=== PATIENT | male | born 1965 | race Caucasian/White ===

== ENCOUNTER 2017-10-03 18:59 | Inpatient (IN) | payer OTHER ==
[~2017-10-03] VITALS: Ht 182.9 cm; Wt 83.9 kg
--- NOTE | 2017-10-03 19:30 | NUR ---
PRE-ADMISSION NOTE Patient is a 51-year-old male, seen at intake, alert and oriented x4. Patient is flushed, diaphoretic, and tremulous, verbalizing that he is anxious to be in a "new and unfamiliar environment." Patient's initial vital signs are as follows: 157/90, HR 78, O2 sat 98% on room air, RR 20/min, temp 98.8, no complaints of pain. Patient states he has NKDA/NKFA; patient is ambulatory, gait is steady. Patient states his last drink was "on the plane" a couple hours prior to arriving at intake. Patient was seen by MD and patient's blood was drawn and UA provided. SN instructed patient on unit protocols and procedures, such as vital signs Q4H, body/skin check and contraband check, etc. Patient verbalized understanding to instructions. Will continue with admission upon patient's arrival to the unit.
[2017-10-03] MEDS ORDERED: THIAMINE HCL 200 MG/2 ML VIAL IM ONE (19:45)
[2017-10-03] MEDS ORDERED: ACETAMINOPHEN 325 MG TABLET PO PRN (19:45)
[2017-10-03] MEDS ORDERED: LORAZEPAM 1 MG TABLET PO PRN ×2 (19:45)
[2017-10-03] MEDS ORDERED: CLONIDINE HCL 0.1 MG TABLET PO PRN (19:45)
[2017-10-03] MEDS ORDERED: LOPERAMIDE HCL 2 MG CAPSULE PO PRN ×2 (19:45)
[2017-10-03] MEDS ORDERED: MIRALAX 17 GM POWD.PACK PO PRN (19:45)
[2017-10-03] MEDS ORDERED: ONDANSETRON 4 MG/2 ML VIAL IM PRN (19:45)
[2017-10-03] MEDS ORDERED: MAG HYDROX/AL HYDROX/SIMETH 30 ML LIQUID UDC PO PRN (19:45)
[2017-10-03] MEDS ORDERED: DICYCLOMINE HCL 20 MG TABLET PO PRN (19:45)
[2017-10-03] MEDS ORDERED: LORAZEPAM 2 MG/1 ML VIAL IM PRN (19:45)
[2017-10-03] MEDS ORDERED: ONDANSETRON ODT 4 MG TAB.RAPDIS SL PRN (19:45)
[2017-10-03] MEDS ORDERED: MAGNESIUM HYDROXIDE 30 ML LIQUID UDC PO PRN (19:45)
[2017-10-03 20:05] LABS: BASOPHILS # (AUTO) 0.1 K/uL (0.0-8.0); BASOPHILS % (AUTO) 0.8 % (0.0-2.0); EOSINOPHILS # (AUTO) 0.1 K/uL (0.0-0.7); EOSINOPHILS % (AUTO) 1.5 % (0.0-7.0); HEMATOCRIT 45.5 % (36.7-47.1); HEMOGLOBIN 15.5 g/dL (12.5-16.3); LYMPHOCYTES % (AUTO) 14.2 % (20.5-51.5); MEAN CORPUSCULAR HEMOGLOBIN 34.6 uug (23.8-33.4); MEAN CORPUSCULAR HGB CONC 34 g/dL (32.5-36.3); MEAN CORPUSCULAR VOLUME 101.5 fL (73.0-96.2); MONOCYTES # (AUTO) 0.7 K/uL (2.0-10.0); MONOCYTES % (AUTO) 10.5 % (0.0-11.0); NEUTROPHILS # (AUTO) 5.1 K/uL (1.8-8.9); PLATELET COUNT (AUTO) 252 K/uL (152-348); RED BLOOD CELL COUNT(AUTO) 4.48 MIL/uL (4.06-5.63)
[2017-10-03 20:09] LABS: *AMPHETAMINE, URINE NEGATIVE (NEGATIVE); *BARBITURATE, URINE NEGATIVE (NEGATIVE); *CANNABINOID, URINE NEGATIVE (NEGATIVE); *COCCAINE, URINE NEGATIVE (NEGATIVE); *OPIATE, URINE NEGATIVE (NEGATIVE); *PHENCYCLIDINE SCREEN,URINE NEGATIVE (NEGATIVE)
[2017-10-03 20:18] LABS: BILIRUBIN,TOTAL 0.8 mg/dL (0.2-1.0); CREATININE 0.9 mg/dL (0.6-1.3); MAGNESIUM 1.6 mg/dL (1.8-2.4); POTASSIUM 3.4 mmol/L (3.5-5.1); TOTAL PROTEIN, SERUM 8.4 g/dL (6.4-8.2)
[2017-10-03] MEDS ORDERED: LORAZEPAM 1 MG TABLET PO SCH (21:00)
[2017-10-03] MEDS: LEVETIRACETAM 500 MG TABLET PO SCH (21:32)
[2017-10-03] MEDS ORDERED: MAGNESIUM OXIDE 400 MG TABLET PO ONE (22:00)
[2017-10-03] MEDS ORDERED: POTASSIUM CHLORIDE 20 MEQ TAB.PRT.SR PO ONE (22:00)
--- NOTE | 2017-10-03 22:00 | NUR ---
ADMISSION NOTE Patient is a 51-year-old male, admitted on 10/03/17 for ETOH withdrawal, on the unit at 2001. Patient is FULL code status, on a regular diet, with NKDA/NKFA. Patient is alert and oriented x4, 6' and 185 lbs. Patient is ambulatory with a steady gait. Patient is the primary source of information. Patient states that he recently had a seizure, "about 6 weeks ago" related to withdrawal, however it was his first seizure ever experienced. Patient reports that since then he has been taking "anti-seizure" medication (Keppra); is aware. Skin and body check was completed upon patient's arrival to the unit, no contraband found. Upon assessment, patient's skin is intact, flushed and diaphoretic. Patient's lung sounds are clear bilaterally, bowel sounds active x4 quadrants upon auscultation. Patient's vitals as follows: BP 157/90, HR 78, O2 sat 98% on room air, RR 20/min, temp 98.8, denies pain at this time. Patient states that his most common withdrawal symptoms are "uncontrollable tremors" to the point where he "can't even hold water to drink." Patient states that he experiences headaches when withdrawing, although he denies the presence of headache at this time. Patient states he does not smoke cigarettes, nor does he use any nicotine products. Substance Abuse History: 1. ETOH (vodka) 500-750ml daily consistently for the last 2 months. Patient reports that he has been drinking since he was [id number]. Last intake was about 4 oz. of vodka on the plane 2 hours prior to arrival. Patient reports that the last rehab he attended was in [place] but does not recall the name. He states that his longest period of sobriety was 60 days during 2016- 2016. Patient does have a PCP and thinks he is an organ donor. Patient states that family history of substance abuse is limited to his father, who from cirrhosis of the liver. Patient currently lives in [place] with his and sahilon. Initial CIWA was 15. Patient was oriented to the unit and shown to his room. Seizure and fall precautions in place, safety measures in place, side rails up x2, bed locked in low position, call light within reach. Will continue to monitor.
[2017-10-03] MEDS: diphenhydrAMINE 50 MG CAPSULE PO PRN (22:10)
[2017-10-03] MEDS: GABAPENTIN 300 MG CAPSULE PO SCH (22:10)
--- NOTE | 2017-10-03 22:10 | NUR ---
PRN BENADRYL Patient states he has difficulty sleeping requests aid. PRN Benadryl given PO. Safety measures in place, call light within reach. Will reassess for effectiveness.
[2017-10-03] MEDS ORDERED: FOLI1TAB16 PO (22:21)
[2017-10-03] MEDS ORDERED: THIA100T13 GT (22:21)
[2017-10-03] MEDS ORDERED: CYCL5TAB PO (22:21)
[2017-10-03] MEDS ORDERED: LEVE500T20 PO (22:21)
[2017-10-03] MEDS ORDERED: GABA-534 PO (22:21)
[2017-10-03] MEDS ORDERED: NABU500T3 PO (22:21)
--- NOTE | 2017-10-03 23:10 | NUR ---
PRN BENADRYL REASSESSMENT Patient is resting in bed with eyes closed, sleeping. PRN Benadryl effective. Respirations even and unlabored, 16/min. Safety measures in place, call light within reach. Will continue to monitor.
[2017-10-03 23:31] VITALS: BP 157/90
[2017-10-04] VITALS: BP 125/77
--- NOTE | 2017-10-04 | NUR ---
CIWA DEFERRED CIWA deferred due to patient sleeping; to be assessed while patient is awake, per protocol. Respirations are even and unlabored, safety measures in place, side rails up x2, call light within reach. Will continue to monitor.
[2017-10-04 04:00] VITALS: BP 116/79
--- NOTE | 2017-10-04 04:00 | NUR ---
CIWA DEFERRED Patient remains in bed, sleeping with eyes closed, HOB elevated about 45 degrees. Patient's respirations are even and unlabored, 16/min. CIWA deferred due to patient sleeping. Safety measures in place, call light within reach. Will continue to monitor.
[2017-10-04] MEDS ORDERED: MULT1TAB73 PO (06:19)
[2017-10-04] MEDS: PANTOPRAZOLE SODIUM 40 MG TABLET.DR PO SCH (06:22)
--- NOTE | 2017-10-04 07:07 | NUR ---
END OF SHIFT Patient is a 51-year-old male, admitted on 10/03/17 for ETOH withdrawal. Patient is scheduled to start a 5-day Ativan taper today. Last CIWA was 12. Patient received PRN Benadryl PO; PRN was effective. Patient's potassium and magnesium were replaced, along with other scheduled 2100 meds. Patient slept for 7 hours, total intake of 796 ml, void x1, stool x0. Seizure and fall precautions in place with past history of seizure x1 approximately 6 weeks ago (2017). Safety measures in place, side rails up x2, bed locked in low position, call light within reach. Will endorse to day shift.
--- NOTE | 2017-10-04 07:30 | NUR ---
START OF SHIFT NOTE Patient is 51 year old male admitted for ETOH withdrawal. Patient order to start 5 days Ativan taper. Per endorsement patient was given PRN Benadryl,effective per night nurse,slept for 7 hours and last CIWA score was-12. Patient received alert awake,complaining of body aches,anxious,agitated, hot cold sweats, nausea,vomiting tremors. Educated patient with plan of the day and importance of compliant to medication and treatment with good verbal understanding. Safety measures in place. Will cont with plan of care.
[2017-10-04 08:00] VITALS: BP 114/80
[2017-10-04] MEDS: GABAPENTIN 300 MG CAPSULE PO SCH ×3 (08:20→20:37)
[2017-10-04] MEDS: LEVETIRACETAM 500 MG TABLET PO SCH ×2 (08:21→20:38)
[2017-10-04] MEDS: THIAMINE HCL 100 MG TABLET PO SCH (08:21)
[2017-10-04] MEDS: MULTIVITAMINS,THERAPEUTIC TABLET PO SCH (08:21)
[2017-10-04] MEDS: LORAZEPAM 1 MG TABLET PO SCH ×4 (08:21→20:38)
[2017-10-04] MEDS: FOLIC ACID 1 MG TABLET PO SCH (08:21)
[2017-10-04] MEDS ORDERED: TUBERCULIN,PURIF.PROT.DERIV. 5 TU/0.1 ML TEST ID ONE (09:00)
[2017-10-04] MEDS: SERTRALINE HCL 50 MG TABLET PO SCH (10:58)
[2017-10-04 12:00] VITALS: BP 121/85
--- NOTE | 2017-10-04 14:26 | NUR ---
PRN IMODIUM Patient reported diarrhea x1 PRN Imodium 4mg Po given as ordered. Will cont to monitor and reassess the pt.
--- NOTE | 2017-10-04 15:26 | NUR ---
IMODIUM REASSESSMENT Per pt Imodium was effective no episode of diarrhea at this time.
[2017-10-04 16:00] VITALS: BP 104/68
--- NOTE | 2017-10-04 16:16 | NUR ---
PRN BENTYL Patient was c/o of stomach cramps 01/03. PRN Bentyl 20mg PO given as ordered. Will cont to monitor and reassess the pt.
--- NOTE | 2017-10-04 17:16 | NUR ---
VIELKA REASSESSMENT Per patient medication was effective stomach cramps subside to 08/05.
--- NOTE | 2017-10-04 19:25 | NUR ---
END OF SHIFT NOTE Patient is alert awake oriented. Patient presented with anxiety, agitation, worried, labile facial expression, stomach cramps, diarrhea. Patient continues with Ativan taper tolerating well. During shift patient received PRN Bentyl, Imodium noted to be effective. Patient was seen by Psychiatric with new order to start Zoloft 50mg PO, medication given as ordered. Vital signs WNL. Skin intact warm and dry to touch. Encourage pt to develop coping skills and utilization of non pharmacological intervention. Patient was encouraged to participates in groups therapy session. Encourage diversional activities to alleviate anxiety. Patient denies any SI/HI. Safety measures in place. Patient endorsed to night nurse in stable condition.
--- NOTE | 2017-10-04 19:35 | NUR ---
START OF SHIFT Patient is a 51-year-old male, admitted on 10/03/17 for ETOH withdrawal. Patient started a 5-day Ativan taper today, tolerating well. Last CIWA was 14 per day shift nurse. Patient received PRN Bentyl and PRN Imodium for 1 episode of diarrhea and stomach cramps; PRN was effective per day shift. Upon assessment, patient was lying in bed, watching television, alert and oriented x4. Patient reports anxiety and difficulty sleeping, and mild headache. Patient reports he had one more episode of diarrhea within the last hour and is requesting another PRN Imodium. Patient is on seizure and fall precautions with past history of seizure x1, approximately 6 weeks ago (2017). Safety measures in place, side rails up x2, bed locked in low position, call light within reach. Will continue to monitor.
[2017-10-04 20:00] VITALS: BP 122/86
[2017-10-04] MEDS: diphenhydrAMINE 50 MG CAPSULE PO PRN (20:37)
[2017-10-04] MEDS: IBUPROFEN 600 MG TABLET PO PRN (20:38)
--- NOTE | 2017-10-04 20:38 | NUR ---
PRN IMODIUM, MOTRIN, & BENADRYL Patient reports that he has had another loose BM since last taking PRN Imodium. PRN Imodium 2mg given PO. Patient reports headache of 3/10 on pain scale. PRN Motrin given PO. Pt reports difficulty sleeping. PRN Benadryl given PO. Safety measures in place, call light within reach. Will reassess for effectiveness.
--- NOTE | 2017-10-04 21:38 | NUR ---
PRN IMODIUM, MOTRIN, & BENADRYL REASSESSMENT Patient reports no episodes of LBM at this time, diarrhea has ceased. PRN Imodium effective. Patient reports headache is resolved, 0/10 on pain scale. PRN Motrin effective. Patient is lying in bed, sleepy and ready for bed. PRN Benadryl effective. Safety measures in place, side rails up x2, bed locked in low position, call light within reach. Will continue to monitor.
[2017-10-05] VITALS: BP 118/82
--- NOTE | 2017-10-05 | NUR ---
CIWA DEFERRED CIWA deferred due to patient sleeping at this time; to be assessed and scored while patient is awake. Respirations are even and unlabored, 16/min. Safety measures in place, side rails up x2, bed locked in low position, call light within reach. Will continue to monitor.
[2017-10-05 04:00] VITALS: BP 116/79
[2017-10-05] MEDS: PANTOPRAZOLE SODIUM 40 MG TABLET.DR PO SCH (06:53)
--- NOTE | 2017-10-05 07:04 | NUR ---
END OF SHIFT Patient is a 51-year-old male, admitted on 10/03/17 for ETOH withdrawal. Patient started a 5-day Ativan taper yesterday, tolerating well. Last CIWA was 15. Patient received PRN Imodium for 2nd episode of diarrhea, PRN Motrin for headache and PRN Benadryl for difficulty sleeping; all PRNs were effective. Patient slept for 9 hours, total intake 850 mL, void x1, stool x1. Patient is on seizure and fall precautions with past history of seizure x1, approximately 6 weeks ago (2017). Safety measures in place, side rails up x2, bed locked in low position, call light within reach. Will endorse to day shift.
[2017-10-05 08:00] VITALS: BP 123/86
--- NOTE | 2017-10-05 08:01 | NUR ---
START OF SHIFT NOTE Patient is 51 year old male admitted for ETOH withdrawal. Patient cont on 5 days Ativan taper tolerating well. Per endorsement patient was given PRN Benadryl, Motrin, Imodium effective per night nurse, slept for 9 hours and last CIWA score was-15. Patient received alert awake,complaining of body aches,anxious,agitated,nausea,tremors noted on bilateral hands. Educated patient with plan of the day and importance of compliant to medication and treatment with good verbal understanding. Safety measures in place. Will cont with plan of care.
[2017-10-05] MEDS: FOLIC ACID 1 MG TABLET PO SCH (08:15)
[2017-10-05] MEDS: GABAPENTIN 300 MG CAPSULE PO SCH ×2 (08:15→14:26)
[2017-10-05] MEDS: SERTRALINE HCL 50 MG TABLET PO SCH (08:15)
[2017-10-05] MEDS: MULTIVITAMINS,THERAPEUTIC TABLET PO SCH (08:15)
[2017-10-05] MEDS: LEVETIRACETAM 500 MG TABLET PO SCH ×2 (08:15→20:17)
[2017-10-05] MEDS: THIAMINE HCL 100 MG TABLET PO SCH (08:15)
[2017-10-05] MEDS: LORAZEPAM 1 MG TABLET PO SCH ×3 (08:15→20:17)
[2017-10-05 12:00] VITALS: BP 108/75
[2017-10-05] MEDS: IBUPROFEN 600 MG TABLET PO PRN (14:30)
--- NOTE | 2017-10-05 15:30 | NUR ---
MOTRIN REASSESSMENT Per patient Motrin was effective lower back pain lower to 1/10.
--- NOTE | 2017-10-05 15:58 | NUR ---
LAUREL DIAZ Patient reported lower back pain 01/03. PRN Motrin 600mg PO as ordered. Will cont to monitor and reassess the pt. Addendum: 10/05/17 at 1600 by DENIZ DOUGHERTY LVN Medication was given at 1430.
[2017-10-05 16:00] VITALS: BP_SYST 123; BP_SYST 126; BP_DIAS 81; BP_DIAS 86
--- NOTE | 2017-10-05 19:15 | NUR ---
END OF SHIFT NOTE Patient is alert awake oriented. Patient presented with anxiety, agitation, worried, labile facial expression, stomach cramps, still noted with bilateral hand tremors. Patient continues with Ativan taper tolerating well. During shift patient received PRN Motrin for lower back pain noted to be effective. Vital signs WNL. Skin intact warm and dry to touch. Encourage pt to develop coping skills and utilization of non pharmacological intervention. Patient was encouraged to participates in groups therapy session. Encourage diversional activities to alleviate anxiety. Patient denies any SI/HI. Safety measures in place. Patient endorsed to night nurse in stable condition.
--- NOTE | 2017-10-05 19:30 | NUR ---
START OF SHIFT Pt is a 51 y/o male admitted on 10/03/17 for ETOH withdrawal. Pt is on a 5 day Ativan taper that started on 10/04/17, tolerating well. Per day shift nurse last CIWA 12 and PRN Motrin administered. Upon assessment pt presents with anxiety, flushed skin, sweats, tremors, flat affect, right leg pain, restlessness, pins and needles sensations in bilateral feet and difficulty falling asleep. Pt refuses MotrinMedications due. Safety measures in place. Call light within reach. Will continue to monitor.
[2017-10-05 20:00] VITALS: BP 119/81
[2017-10-05] MEDS: diphenhydrAMINE 50 MG CAPSULE PO PRN (20:18)
--- NOTE | 2017-10-05 20:18 | NUR ---
LAUREL CARRILLO ADMINISTERED Pt requests sleep aid for difficulty falling asleep. Safety measures in place. Call light within reach. Will continue to monitor.
[2017-10-05] MEDS ORDERED: GABAPENTIN 300 MG CAPSULE PO SCH (21:00)
--- NOTE | 2017-10-05 21:18 | NUR ---
PRN BENADRYL REASSESSMENT Pt laying in bed with eyes closed, medication noted effective. Respirations even and unlabored. Safety measures in place. Call light within reach. Will continue to monitor.
[2017-10-06] VITALS: BP 101/68
--- NOTE | 2017-10-06 | NUR ---
CIWA DEFERRED Pt laying in bed with eyes closed, CIWA deferred, to be assessed when pt is awake per orders. Respirations even and unlabored. Safety measures in place. Call light within reach. Will continue to monitor.
[2017-10-06 03:06] LABS: HEPATITIS B SURFACE AG Negative (Negative)
[2017-10-06 04:00] VITALS: BP 106/72
[2017-10-06] MEDS: PANTOPRAZOLE SODIUM 40 MG TABLET.DR PO SCH (06:44)
--- NOTE | 2017-10-06 07:09 | NUR ---
END OF SHIFT Pt is a 51 y/o male admitted on 10/03/17 for ETOH withdrawal. Pt is on a 5 day Ativan taper that started on 10/04/17, tolerating well. Pt presented with anxiety, flushed skin, sweats, tremors, flat affect, right leg pain, lower back pain, restlessness, pins and needles sensations in bilateral feet and difficulty falling asleep. Pt refused Motrin. Scheduled medications and PRN Benadryl administered, effective in S/S of withdrawal as verbalized by pt. Last CIWA 16. Pt slept 7 hours. Intake 1150 ml, void x 2, stool x 0. Safety measures in place. Pts needs have been met. Endorsed to day shift nurse.
--- NOTE | 2017-10-06 07:45 | NUR ---
START OF SHIFT NOTE Patient is 51 year old male admitted for ETOH withdrawal. Patient cont on 5 days Ativan taper tolerating well. Per endorsement patient was given PRN Benadryl effective per night nurse, slept for 7 hours and last CIWA score was-16. Patient received alert awake anxious, agitated, nausea, tremors noted on bilateral hands, labile facial expression noted. Educated patient with plan of the day and importance of compliant to medication and treatment with good verbal understanding. Safety measures in place. Will cont with plan of care.
[2017-10-06 08:00] VITALS: BP 103/74
[2017-10-06] MEDS: GABAPENTIN 300 MG CAPSULE PO SCH ×3 (08:14→20:41)
[2017-10-06] MEDS: SERTRALINE HCL 50 MG TABLET PO SCH (08:14)
[2017-10-06] MEDS: LEVETIRACETAM 500 MG TABLET PO SCH ×2 (08:14→20:42)
[2017-10-06] MEDS: MULTIVITAMINS,THERAPEUTIC TABLET PO SCH (08:15)
[2017-10-06] MEDS: FOLIC ACID 1 MG TABLET PO SCH (08:15)
[2017-10-06] MEDS: THIAMINE HCL 100 MG TABLET PO SCH (08:15)
[2017-10-06] MEDS ORDERED: LORAZEPAM 1 MG TABLET PO SCH ×2 (09:00→21:00)
--- NOTE | 2017-10-06 10:47 | NUR ---
Therapist prompted client about group times. Client stated he will try to attend groups today.
[2017-10-06] MEDS ORDERED: BACLOFEN 20 MG TABLET PO PRN (11:15)
[2017-10-06 12:00] VITALS: BP 118/92
[2017-10-06] MEDS: LORAZEPAM 1 MG TABLET PO SCH ×2 (12:16→16:05)
[2017-10-06] MEDS: KETOROLAC TROMETHAMINE 30 MG INJ IM PRN ×2 (12:28→20:44)
--- NOTE | 2017-10-06 12:28 | NUR ---
PRN CLONIDINE/TORADOL Patient noted with increased blood pressure 118/92 and patient was c/o of lower back pain 03/05. PRN Toradol 30mg IM and Clonidine 0.1mg PO given as ordered. Will cont to monitor and reassess.
--- NOTE | 2017-10-06 12:58 | NUR ---
TORADOL REASSESSMENT Per patient Toradol was effective in lowering back pain 2/10.
[2017-10-06] MEDS ORDERED: LORAZEPAM 1 MG TABLET PO ONE (13:00)
[2017-10-06] MEDS ORDERED: LORAZEPAM 1 MG TABLET PO PRN ×2 (13:00)
--- NOTE | 2017-10-06 13:06 | NUR ---
One time Ativan Pt's CIWA score 16. He has elevated HR, gross tremors, and tingling in fingers. Dr. Tobar made aware. One time additional dose of Ativan received and carried out.
--- NOTE | 2017-10-06 13:28 | NUR ---
CLONIDINE REASSESSMENT Blood pressure noted 110/70,HR-95. Clonidine noted effective.
--- NOTE | 2017-10-06 14:06 | NUR ---
ATIVAN REASSESSMENT Patient's CIWA score noted-12, HR noted 90, patient reported tingling decreased, but still noted with tremors.
[2017-10-06 16:00] VITALS: BP 114/79
--- NOTE | 2017-10-06 19:03 | NUR ---
END OF SHIFT NOTE Patient is alert awake oriented x4. Patient presented with anxiety, agitation, still noted with bilateral hand gross tremors. Patient continues with Ativan taper tolerating well. During shift patient received PRN Toradol for lower back pain/Clonidine for for increased blood pressure and patient also received one time Ativan 2mg PO for CIWA score 16 noted to be effective. Vital signs WNL. Skin intact warm and dry to touch. Encourage pt to develop coping skills and utilization of non pharmacological intervention. Patient was encouraged to participates in groups therapy session. Encourage diversional activities to alleviate anxiety. Patient denies any SI/HI. Safety measures in place. Patient endorsed to night nurse in stable condition.
--- NOTE | 2017-10-06 19:30 | NUR ---
START OF SHIFT Received 51 year old male patient admitted on 10/03/17 for ETOH withdrawal. He is receiving a 5 day Ativan taper, currently on day 3/5 and tolerating well. Pt noted to be disheveled and odorous and clothes thrown on the floor in room. Pt complains of anxiety, agitation, restlessness, tremors, sensitivity to light, flushed face, chills, pins and needles in bilateral feet, and difficulty sleeping at night. Per endorsement, he received PRN Toradol, Clonidine and one time Ativan 2 mg. Last CIWA:13 at 1600. Breathing is even and unlabored. Safety measures in place. Will monitor.
[2017-10-06 20:00] VITALS: BP 101/73
--- NOTE | 2017-10-06 20:44 | NUR ---
PRN TORADOL Pt complains of lower back pain 03/05. PRN Toradol administered as ordered for pain. Breathing even and unlabored, safety measures in place. Will monitor effectiveness.
--- NOTE | 2017-10-06 21:15 | NUR ---
PRN TORADOL REASSESSMENT PRN medication effective. Pt reports decrease in lower back pain 5/10. Breathing is even and unlabored, safety measures in place. Will monitor.
[2017-10-06] MEDS: diphenhydrAMINE 50 MG CAPSULE PO PRN (21:27)
--- NOTE | 2017-10-06 21:27 | NUR ---
PRN BENADRYL Pt complains of difficulty falling asleep. PRN Benadryl administered as ordered. Breathing is even and unlabored, safety measures in place. Will continue to monitor.
--- NOTE | 2017-10-06 22:27 | NUR ---
PRN BENADRYL REASSESSMENT PRN medication is effective. Pt is lying in bed with eyes closed noted to be asleep. Breathing is even and unlabored. Respirations 16. Safety measures in place. Will monitor.
[2017-10-07] VITALS: BP 105/65
[2017-10-07 04:00] VITALS: BP 102/62
[2017-10-07] MEDS: PANTOPRAZOLE SODIUM 40 MG TABLET.DR PO SCH (06:38)
--- NOTE | 2017-10-07 07:00 | NUR ---
END OF SHIFT Pt is a 51 year old male patient admitted on 10/03/17 for ETOH withdrawal. Pt remains alert and oriented x4. He continues on a 5 day Ativan taper, currently on day 4/5 and tolerating well. Pt had complaints of anxiety, agitation, restlessness, tremors, sensitivity to light, flushed face, chills, pins and needles in bilateral feet, and difficulty sleeping at night during the shift. He received PRN Toradol at 2043, and PRN Benadryl at 2126. He slept a total of 5 hrs, Intake: 1,000mL, Void: x3, BM:0, CIWA:12 at 1999. Breathing is even and unlabored. Safety measures in place. Will endorse to AM shift.
[2017-10-07 08:00] VITALS: BP 115/80
--- NOTE | 2017-10-07 08:02 | NUR ---
START OF SHIFT: RECEIVED PT A/O X 4. HE IS LAYING IN BED.HE IS TREMULOUS. HE REPORTS ANXIETY,RESTLESSNESS,WEAKNESS AND PINS AND NEEDLES TO FEET INTERMITTENTLY. HIS MOOD IS ANXIOUS WITH GUARDED AFFECT. CIWA 12. ATIVAN TAPER IN PROGRESS TO MANAGE S/S OF W/D. HE WAS ENCOURAGED TO GET OUT OF BED TODAY AND ATTEND GROUPS TO IMPROVE COPING SKILLS AND PREVENT RELAPSE. WILL CONTINUE TO MONITOR AND MANAGE S/S OF W/D.
[2017-10-07] MEDS: LEVETIRACETAM 500 MG TABLET PO SCH ×2 (08:38→20:59)
[2017-10-07] MEDS: MULTIVITAMINS,THERAPEUTIC TABLET PO SCH (08:38)
[2017-10-07] MEDS: FOLIC ACID 1 MG TABLET PO SCH (08:38)
[2017-10-07] MEDS: THIAMINE HCL 100 MG TABLET PO SCH (08:38)
[2017-10-07] MEDS: GABAPENTIN 300 MG CAPSULE PO SCH ×2 (08:38→14:35)
[2017-10-07] MEDS ORDERED: SERTRALINE HCL 50 MG TABLET PO SCH (09:00)
[2017-10-07] MEDS ORDERED: LORAZEPAM 1 MG TABLET PO SCH ×3 (09:00→21:00)
[2017-10-07 12:00] VITALS: BP 107/75
[2017-10-07 16:00] VITALS: BP 115/80
--- NOTE | 2017-10-07 18:43 | NUR ---
END OF SHIFT: PT CONTINUES ON ATIVAN TAPER TO MANAGE S/S OF W/D. HE PRESENTS WITH ANXIOUS MOOD AND GUARDED AFFECT. TREMORS NOTED. HE REPOTS WEAKNESS,ANXIETY,FATIGUE AND RESTLESSNESS. LAST CIWA 8. HE STAYS IN BED AND REFUSED TO ATTEND GROUPS AND STATES " I FEEL TOO SICK TO GO TO GROUP". PT ISOLATED IN ROOM AND STAYED IN BED THIS SHIFT. HE WAS COMPLIANT WITH MEDS AND FLUIDS. HIS APPETITE IS FAIR. WILL PASS SHIFT REPORT TO ONCOMING NIGHT NURSE.
--- NOTE | 2017-10-07 19:30 | NUR ---
START OF SHIFT Received 51 year old male patient admitted on 10/03/17 for ETOH withdrawal. Pt is alert and oriented x4. He continues on a 5 day Ativan taper and tolerating well. Pt noted to be odorous, anxious, restless, tremulous and agitated. He complains of pins and needles in bilateral feet, chills, and sweats. Per endorsement, he did not receive or request PRN medications. He has been isolated in his room and only attended the evening group activity. Last CIWA:8 at 1600. Breathing is even and unlabored, safety measures in place. Will continue to monitor.
[2017-10-07 20:00] VITALS: BP 110/80
[2017-10-07] MEDS: diphenhydrAMINE 50 MG CAPSULE PO PRN (20:59)
[2017-10-07] MEDS ORDERED: GABAPENTIN 300 MG CAPSULE PO SCH (21:00)
[2017-10-07] MEDS: KETOROLAC TROMETHAMINE 30 MG INJ IM PRN (21:01)
--- NOTE | 2017-10-07 21:01 | NUR ---
PRN TORADOL/BENADRYL Pt complains of lower back achy pain 8/10 and reports difficulty sleeping. PRN Toradol and Benadryl administered as ordered. Will monitor effectiveness.
--- NOTE | 2017-10-07 22:01 | NUR ---
PRN REASSESSMENT PRN medications effective. Pt is lying in bed with eyes closed noted to be asleep. No facial grimacing noted. Breathing is even and unlabored, safety measures in place. will continue to monitor.
[2017-10-08] VITALS: BP 105/70
[2017-10-08 04:02] VITALS: BP 108/72
[2017-10-08] MEDS: PANTOPRAZOLE SODIUM 40 MG TABLET.DR PO SCH (06:47)
--- NOTE | 2017-10-08 07:00 | NUR ---
END OF SHIFT Pt is a 51 year old male patient admitted on 10/03/17 for ETOH withdrawal. He remains alert and oriented x4. He continues on a 5 day Ativan taper and is tolerating well. Pt was noted with anxiety, tremors, agitation, restlessness, difficulty sleeping, and lower back pain during shift. He received PRN Benadryl and Toradol. He slept a total of 7 hrs, Intake:500mL, Void:x3, BM:x1, CIWA:9 at 2000. Breathing is even and unlabored, safety measures in place. Endorsed to AM shift.
--- NOTE | 2017-10-08 07:27 | NUR ---
BEGINNING OF SHIFT Patient endorsement report received from boat painter nurse, all pertinent information discussed. Patient is a 51 year old male with admitting Dx: etoh withdrawal. Patient continues under very close observation, patient continues on 5 day Ativan taper as ordered, is currently scheduled to begin day 5 of taper this morning. Per boat painter patient with last ciwa score of: 9. Received PRN: Toradol inj, and Benadryl, per boat painter medications were effective. per boat painter. slept for 7 hours. Fall and seizure precautions observed at all times. Patient received awake, alert and oriented x4, educated regarding plan of care for the day, and medication regimen with good verbal understanding. fall and seizure precautions observed and in place. will continue to monitor closely. safety measures in place.
[2017-10-08 08:37] VITALS: BP 112/76
[2017-10-08] MEDS: THIAMINE HCL 100 MG TABLET PO SCH (08:39)
[2017-10-08] MEDS: LORAZEPAM 1 MG TABLET PO SCH ×3 (08:40→20:28)
[2017-10-08] MEDS: LEVETIRACETAM 500 MG TABLET PO SCH ×2 (08:40→20:28)
[2017-10-08] MEDS: SERTRALINE HCL 100 MG TABLET PO SCH (08:40)
[2017-10-08] MEDS: MULTIVITAMINS,THERAPEUTIC TABLET PO SCH (08:40)
[2017-10-08] MEDS: GABAPENTIN 300 MG CAPSULE PO SCH ×3 (08:40→20:26)
[2017-10-08] MEDS: FOLIC ACID 1 MG TABLET PO SCH (08:40)
[2017-10-08] MEDS ORDERED: SERTRALINE HCL 50 MG TABLET PO SCH (09:00)
[2017-10-08] MEDS ORDERED: LORAZEPAM 1 MG TABLET PO SCH (09:00)
[2017-10-08 13:00] VITALS: BP 104/73
[2017-10-08] MEDS: LIDOCAINE 5% PATCH TD SCH (14:03)
[2017-10-08] MEDS ORDERED: GABA-534 PO (15:39)
[2017-10-08] MEDS ORDERED: PANT40TA2 PO (15:39)
[2017-10-08] MEDS ORDERED: BACL20TA PO (15:39)
[2017-10-08] MEDS ORDERED: SERT100T12 PO (15:39)
[2017-10-08] MEDS ORDERED: LEVE500T9 PO (15:39)
[2017-10-08] MEDS ORDERED: LIDO30AD10 TD (15:39)
[2017-10-08] MEDS ORDERED: CLON0.1T14 PO (15:39)
[2017-10-08] MEDS ORDERED: IBUP-1955 PO (15:39)
[2017-10-08] MEDS ORDERED: DIPH50CA37 PO (15:39)
[2017-10-08 16:33] VITALS: BP 110/78
--- NOTE | 2017-10-08 19:06 | NUR ---
BEGINNING OF SHIFT Patient alert and oriented x4, Patient is disheveled, anxious, worried, with irritable facial expression. Patients appearance is unkempt, unshaven, odorous, with poor hygiene. Mood is flat and labile. patient was encouraged to self groom and maintain personal area. Continues on a modified Ativan taper as ordered. During shift patient presented with: tremors, anxiety, agitation, very mild pins and needle sensation to feet. Initial ciwa score of: 10, last ciwa score of: 10. Encouraged increase in PO fluid intake as tolerated, to facilitate detox. Received no PRNs during shift, during shift new orders for lidocaine obtained, administered as ordered, also gabapentin increase as per Dr. Tobar. patient was encouraged adequate PO fluid intake as tolerated, patient encouraged to develop coping skills and utilization of non pharmacological interventions. Patient was encouraged to participate in therapy session .Encouraged diversional activities to alleviate anxiety. Denies any SI/HI. Safety measures in place. Call light kept with in reach, patient endorsed to shift nurse manager nurse, all pertinent information was discussed. Addendum: 10/08/17 at 1907 by GABE ERAZO LVN CLARIFICATION NOTE ABOVE IS "END OF SHIFT"
[2017-10-08 20:00] VITALS: BP 116/77
--- NOTE | 2017-10-08 20:00 | NUR ---
Start of Shift Notes Received 51 y/o male admitted on 10/03/2017 for medically supervised withdrawals from ETOH. Px was put to Ativan taper, last dose on 10/09/2017. Px is tolerating well. Last reported CIWA 9 from AM shift nurse. During the rounds at 2000, px is awake lying on bed in fowlers position, watching TV. Px looks anxious, flat and unshaven. Px complained of pain. Px stated "I have pain due to my sciatica on my right hip running at the back of my thigh, its 10, can I have injection for pain?" "I am getting that shot every night". Px added "My anxiety is 6/10". Bilateral hand tremors noted. Bed on lowest position, side rails up padded 2x, and call light within reach. We'll continue to monitor.
[2017-10-08] MEDS: KETOROLAC TROMETHAMINE 30 MG INJ IM PRN (20:28)
[2017-10-08] MEDS: diphenhydrAMINE 50 MG CAPSULE PO PRN (20:28)
--- NOTE | 2017-10-08 20:28 | NUR ---
PRN meds Toradol 30 mg given IM on R deltoids for RLE pain of 8/10. Benadryl 50 mg/cap, 1 cap given PO for insomnia per px's requests. We'll continue to monitor.
--- NOTE | 2017-10-08 21:00 | NUR ---
Reassessment of pain Px stated "my pain improved, it is 5/10". We'll continue to monitor.
[2017-10-09] VITALS: BP 113/79
[2017-10-09 04:00] VITALS: BP 109/74
--- NOTE | 2017-10-09 04:00 | NUR ---
CIWA deferred CIWA deferred at 0000 and at 0400 due to the px is asleep, to assess if the px is awake per doctor's order. We'll continue to monitor.
[2017-10-09] MEDS: PANTOPRAZOLE SODIUM 40 MG TABLET.DR PO SCH (06:30)
--- NOTE | 2017-10-09 07:05 | NUR ---
End of Shift Notes During the shift at 2027, Px was given Toradol 30 mg IM for pain of 8/10, it was effective, pain improved to 5/10 from 03/05. Benadryl 50 mg PO also given for insomnia. It was also effective. Px slept for 8 hours. Px's oral intake is 1,300 ml, voided 3x, No BM. At 0630, px is asleep on bed in right side lying position. CIWA improved from 11 to 10. Bed on lowest position, side rails up padded 2x, and call light within reach. We'll continue to monitor. Px endorsed to AM shift nurse.
--- NOTE | 2017-10-09 07:35 | NUR ---
BEGINNING OF SHIFT Patient endorsement report received from production shift supervisor nurse, all pertinent information discussed. Patient is a 51 year old male with admitting Dx: etoh withdrawal. Patient continues under very close observation, patient continues on a modified ativan taper as ordered. Per production shift supervisor patient with last ciwa score of: 10. Received PRN: Toradol inj, and Benadryl, per production shift supervisor medications were effective. per production shift supervisor. slept for 8 hours. Fall and seizure precautions observed at all times. Patient received awake, alert and oriented x4, educated regarding plan of care for the day, and medication regimen with good verbal understanding. fall and seizure precautions observed and in place. will continue to monitor closely. safety measures in place.
[2017-10-09 09:00] VITALS: BP 114/73
[2017-10-09] MEDS ORDERED: LORAZEPAM 1 MG TABLET PO SCH (09:00)
[2017-10-09] MEDS: LEVETIRACETAM 500 MG TABLET PO SCH ×2 (09:34→21:15)
[2017-10-09] MEDS: MULTIVITAMINS,THERAPEUTIC TABLET PO SCH (09:34)
[2017-10-09] MEDS: GABAPENTIN 300 MG CAPSULE PO SCH ×3 (09:34→21:15)
[2017-10-09] MEDS: FOLIC ACID 1 MG TABLET PO SCH (09:34)
[2017-10-09] MEDS: SERTRALINE HCL 100 MG TABLET PO SCH (09:34)
[2017-10-09] MEDS: THIAMINE HCL 100 MG TABLET PO SCH (09:34)
[2017-10-09] MEDS: LIDOCAINE 5% PATCH TD SCH (09:39)
--- NOTE | 2017-10-09 13:23 | NUR ---
Therapist prompted client to attend all groups while in treatment to increase feelings of being connected to others and not be isolated in bedroom. Therapist explained the benefits of attending groups such as learning new coping tools, learning about feelings/emotions and being able to learn to decrease negative feelings and thoughts.
[2017-10-09 13:30] VITALS: BP 113/81
[2017-10-09 16:00] VITALS: BP 113/83
--- NOTE | 2017-10-09 18:56 | NUR ---
END OF SHIFT Patient alert and oriented x4, Patient is disheveled, anxious, worried, with irritable facial expression. Patients appearance is unkempt, unshaven, odorous, with poor hygiene. Mood is flat and labile. patient was encouraged to self groom and maintain personal area. Continues on a modified Ativan taper as ordered, Patient received last dose this morning, well tolerated, detox medication effective at reducing withdrawal symptoms. patient is scheduled to be discharged tomorrow morning, noted self motivated towards sobriety. During shift patient presented with: tremors, anxiety, agitation, Initial ciwa score of: 7, last ciwa score of: 6. Encouraged increase in PO fluid intake as tolerated, to facilitate detox. Received no PRNs during shift. patient was encouraged adequate PO fluid intake as tolerated, patient encouraged to develop coping skills and utilization of non pharmacological interventions. Patient was encouraged to participate in therapy session .Encouraged diversional activities to alleviate anxiety. Denies any SI/HI. Safety measures in place. Call light kept with in reach, patient endorsed to bonded structures repairer nurse, all pertinent information was discussed.
--- NOTE | 2017-10-09 19:45 | NUR ---
Start of Shift Notes Received 51 y/o male admitted on 10/03/2017 for medically supervised withdrawals from ETOH. Px completed a modified Ativan taper. Px tolerated well. Px is to be D/C tomorrow 10/10/2017. Last reported CIWA 6 from AM shift nurse. During the rounds at 1945, px is awake lying on bed in fowlers position, watching TV. Px looks anxious, flat and unshaven. Px complained of pain and hand tremors. Px stated "My anxiety is 6/10 and I still have pain on my right hip running at the back of my thigh, its still 8/10, can I have injection again for pain?" Bilateral hand tremors noted. Bed on lowest position, side rails up padded 2x, and call light within reach. We'll continue to monitor.
[2017-10-09 20:00] VITALS: BP 113/78
[2017-10-09] MEDS: diphenhydrAMINE 50 MG CAPSULE PO PRN (21:15)
[2017-10-09] MEDS: KETOROLAC TROMETHAMINE 30 MG INJ IM PRN (21:18)
--- NOTE | 2017-10-09 21:18 | NUR ---
Vial Toradol Toradol 30 mg/ml vial can't be scanned since yesterday night. It was manually clicked, charge nurse Jenn resendiz.
--- NOTE | 2017-10-09 21:18 | NUR ---
PRN Toradol and Benadryl Px was given Toradol 30 mg/ml IM on left deltoids for pain of 8/10 and Benadryl 50 mg/cap, 1 cap PO as requested by the px for insomnia. We'll continue to monitor.
--- NOTE | 2017-10-09 21:50 | NUR ---
Reassessment of pain Px stated "pain is still there, it is 5/10". We'll continue to monitor.
[2017-10-10] VITALS: BP 115/77
[2017-10-10 04:00] VITALS: BP 108/79
[2017-10-10] MEDS: PANTOPRAZOLE SODIUM 40 MG TABLET.DR PO SCH (06:57)
--- NOTE | 2017-10-10 07:20 | NUR ---
End of Shift Notes Px is to be D/C today 10/10/2017. During the shift at 2118, Toradol 30 mg/ml given IM for pain 03/05 and Benadryl 50 mg/cap given PO for insomnia. They were effective. Pain reduced to 5/10 from 8/10. Px slept for a total of 8 hours. Px's oral intake of 2L, voided 4x, No BM. CIWA improved from 8 to 6. At 0630, px is asleep on bed in semi fowlers position. Bed on lowest position, side rails up padded 2x, and call light within reach. We'll continue to monitor. Px endorsed to AM shift nurse.
--- NOTE | 2017-10-10 07:33 | NUR ---
BEGINNING OF SHIFT Patient endorsement report received from steward/stewardess night nurse, all pertinent information discussed. Patient is a 51 year old male with admitting Dx: etoh withdrawal. Patient continues under very close observation, patient completed modified Ativan taper and is scheduled to be discharged this morning. Per steward/stewardess night patient with last ciwa score of: 6. Received PRN: Toradol inj, and Benadryl, per steward/stewardess night medications were effective. per steward/stewardess night. slept for 8 hours. Fall and seizure precautions observed at all times. Patient received awake, alert and oriented x4, educated regarding plan of care for the day, and medication regimen with good verbal understanding. fall and seizure precautions observed and in place. will continue to monitor closely. safety measures in place.
[2017-10-10 07:59] VITALS: BP 100/66
[2017-10-10 08:04] VITALS: BP 100/66
[2017-10-10] MEDS: LIDOCAINE 5% PATCH TD SCH (08:38)
[2017-10-10] MEDS: LEVETIRACETAM 500 MG TABLET PO SCH (08:38)
[2017-10-10] MEDS: SERTRALINE HCL 100 MG TABLET PO SCH (08:38)
[2017-10-10] MEDS: MULTIVITAMINS,THERAPEUTIC TABLET PO SCH (08:38)
[2017-10-10] MEDS: GABAPENTIN 300 MG CAPSULE PO SCH (08:38)
[2017-10-10] MEDS: THIAMINE HCL 100 MG TABLET PO SCH (08:38)
[2017-10-10] MEDS: FOLIC ACID 1 MG TABLET PO SCH (08:38)
--- NOTE | 2017-10-10 09:19 | NUR ---
DISCHARGE Patient discharged off the unit at 0919, prior to discharge patient was educated and provided with teaching regarding all discharge instructions with good verbal understanding. patient noted self motivated towards sobriety. vital signs WNL. last ciwa score of: 5. patients home medications, prescriptions and discharge instructions were place in patients personal duffel bag. patient off the unit in stable condition at 0919.
== END 2017-10-10 09:19 | disposition other institution (70) | DRG 895 ==
LOC: SRC 18:59
PROVIDERS: ADMIT Internal Medicine; ATTEND Internal Medicine
PROC: HZ2ZZZZ Detoxification Services for Substance Abuse Treatment (ICD-10-PCS; principal; 2017-10-03)
PROC: HZ31ZZZ Individual Counseling for Substance Abuse Treatment, Behavioral (ICD-10-PCS; 2017-10-06)
PROC: HZ41ZZZ Group Counseling for Substance Abuse Treatment, Behavioral (ICD-10-PCS; 2017-10-08)
DX: F10.232 Alcohol dependence with withdrawal with perceptual disturbance (principal); K70.10 Alcoholic hepatitis without ascites; E83.42 Hypomagnesemia; I15.9 Secondary hypertension, unspecified; F33.1 Major depressive disorder, recurrent, moderate; Y90.9 Presence of alcohol in blood, level not specified; Z81.1 Family history of alcohol abuse and dependence; Z91.89 Other specified personal risk factors, not elsewhere classified; G89.29 Other chronic pain; E87.6 Hypokalemia; K27.7 Chronic peptic ulcer, site unspecified, without hemorrhage or perforation
CPT/HCPCS: 36415; 70030-TC; 80307; 80346; 83735; 85025; 86580; 86592; 86705; 86803; 87340; 87806; A4663; G0480; J1885; J3411; Q0163